=== PATIENT | female | born 1945 | race Caucasian/White ===

== ENCOUNTER 2016-11-30 10:21 | Emergency (ER) | payer MEDICARE, OTHER ==
[2016-11-30] MEDS ORDERED: SODIUM CHLORIDE 0.9% 1000ML 1,000 ML IVS ONE ×2 (10:40→12:27)
[2016-11-30] MEDS ORDERED: PHYTONADIONE INJ 10 MG/ML AMP IM ONE (11:59)
--- NOTE | 2016-11-30 12:12 | ED.PDOC ---
History of Present Illness - General Chief Complaint: GI Problem Time Seen by Provider: 11/30/16 10:39 Source: patient, family Exam Limitations: no limitations - History of Present Illness Initial Comments: Patient presents with BRBPR x one this morning. She had one normal bowel movement this morning then had a second that had streaks of blood mixed with it. She then had a third bm that she says had a large amount of blood but little stool. She is on coumadin for history of multiple PEs. She is scheduled to have a colonoscopy next week. No light-headedness nor confusion. She has had a previous episode but says that the source of the bleeding could not be found. No other complaints. Timing/Duration: 1-3 hours Severity: moderate Improving Factors: nothing Worsening Factors: nothing Associated Symptoms: denies symptoms Allergies/Adverse Reactions: Allergies Penicillins Allergy (Mild, Verified 09/05/16 11:54) Other Causes swelling of tongue and throat. Home Medications: Ambulatory Orders Azilsartan Medoxomil [Edarbi] 20 mg PO DAILY 11/19/14 Acetaminophen [Tylenol] 650 mg PO BEDTIME PRN 09/05/16 Ferrous Gluconate [Fergon] 27 mg PO DAILY 09/05/16 Olopatadine HCl [Pataday] 1 drop BOTH_EYES BID 09/05/16 Rosuvastatin Calcium 5 mg PO BEDTIME 09/05/16 Alum & Mag Hydrox-Simethicone [Mylanta] 30 ml PO PRN #1 daron 09/06/16 Esomeprazole Magnesium [Nexium] 40 mg PO DAILY #60 cap 09/06/16 Sucralfate Tab [Carafate Tab] 1 gm PO ACHS #60 tab 09/06/16 Warfarin Sodium [Coumadin] 1 mg PO MOTUWETHFRSA@1200 #0 09/06/16 Warfarin Sodium [Coumadin] 1.5 mg PO CASTAÑEDA@1200 #0 09/06/16 Review of Systems - Review of Systems Constitutional: States: no symptoms reported EENTM: States: no symptoms reported Respiratory: States: no symptoms reported Cardiology: States: no symptoms reported Gastrointestinal/Abdominal: States: see HPI Genitourinary: States: no symptoms reported Musculoskeletal: States: no symptoms reported Skin: States: no symptoms reported Neurological: States: no symptoms reported Endocrine: States: no symptoms reported Hematologic/Lymphatic: States: no symptoms reported Past Medical History (General) - Patient Medical History Hx Seizures: No Hx Stroke: No Hx Dementia: No Hx Asthma: No Hx of COPD: No Hx Cardiac Disorders: Yes - DVT 1994 Hx Congestive Heart Failure: No Hx Pacemaker: No Hx Hypertension: No Hx Thyroid Disease: No Hx Diabetes: No Hx Gastroesophageal Reflux: Yes - Hiatal hernia Hx Renal Disease: No Hx Cancer: No Hx of HIV: No Hx Hepatitis C: No Hx MRSA: No - Vaccination History Hx Tetanus, Diphtheria Vaccination: Yes Hx Influenza Vaccination: Yes Hx Pneumococcal Vaccination: No - Social History Hx Tobacco Use: No - Quit in 1986 Hx Chewing Tobacco Use: No Hx Alcohol Use: No Hx Substance Use: No Hx Substance Use Treatment: No Hx Depression: No Hx Physical Abuse: No Hx Emotional Abuse: No Hx Suspected Abuse: No Family Medical History - Family History Father Family History: Unknown Living Status: Physical Exam - Physical Exam General Appearance: Alert Ears, Nose, Throat: normal ENT inspection Neck: non-tender, full range of motion, supple Respiratory: lungs clear Cardiovascular/Chest: regular rate, rhythm Gastrointestinal/Abdominal: normal bowel sounds, non tender, soft Back Exam: normal inspection, no CVA tenderness Extremity: normal inspection Skin Exam: normal color Progress - Progress Progress: 11/30/16 12:13 NS one liter IV bolus x one. Vitamin K 10 mg IM x one. Patient was asymptomatic and vital signs stable and wnl. Transferred to [facility] for GI workup. Laboratory Tests 11/30/16 11:15 WBC 4.9 RBC 3.67 L Hgb 11.8 L Hct 35.1 L MCV 95.7 MCH 32.1 H MCHC 33.6 RDW 15.4 H Plt Count 156 MPV 7.6 Absolute Neuts (auto) 2.80 Absolute Lymphs (auto) 1.40 Absolute Monos (auto) 0.60 Absolute Eos (auto) 0.10 Absolute Basos (auto) 0.00 Neutrophils % 57.9 Lymphocytes % 28.1 Monocytes % 11.5 H Eosinophils % 1.5 Basophils % 1.0 PT 36.7 H* INR 3.290 PTT (SP) 41.4 H Sodium 133 L Potassium 4.1 Chloride 100 L Carbon Dioxide 26 Anion Gap 11.1 L BUN 16 Creatinine 0.69 BUN/Creatinine Ratio 23.2 H Random Glucose 90 Serum Osmolality 267.1 L Calcium 8.8 Total Bilirubin 0.5 AST 25 ALT 23 Alkaline Phosphatase 43 Serum Total Protein 7.0 Albumin 3.7 Globulin 3.3 Albumin/Globulin Ratio 1.1 Departure - Departure Clinical Impression: Lower GI bleed Disposition: Transfer to Hospital Condition: Good Departure Forms: ED Discharge - Pt. Copy, Patient Portal Self Enrollment Diet: other - NPO Home Medications: Ambulatory Orders Azilsartan Medoxomil [Edarbi] 20 mg PO DAILY 11/19/14 Acetaminophen [Tylenol] 650 mg PO BEDTIME PRN 09/05/16 Ferrous Gluconate [Fergon] 27 mg PO DAILY 09/05/16 Olopatadine HCl [Pataday] 1 drop BOTH_EYES BID 09/05/16 Rosuvastatin Calcium 5 mg PO BEDTIME 09/05/16 Alum & Mag Hydrox-Simethicone [Mylanta] 30 ml PO PRN #1 daron 09/06/16 Esomeprazole Magnesium [Nexium] 40 mg PO DAILY #60 cap 09/06/16 Sucralfate Tab [Carafate Tab] 1 gm PO ACHS #60 tab 09/06/16 Warfarin Sodium [Coumadin] 1 mg PO MOTUWETHFRSA@1200 #0 09/06/16 Warfarin Sodium [Coumadin] 1.5 mg PO CASTAÑEDA@1200 #0 09/06/16
--- NOTE | 2016-11-30 13:45 | CT ---
EXAM DESCRIPTION: CT ABDOMEN PELVIS WITH IV CONTRAST CLINICAL HISTORY: abdominal pain with rectal bleeding COMPARISON: None. TECHNIQUE: Post-contrast CT images of the abdomen and pelvis are obtained. CT scan done according to ALARA (As Low As Reasonably Achievable). FINDINGS: Visualized lung bases are unremarkable. The liver, spleen comma pancreas, and adrenal glands are unremarkable. Cholecystectomy changes without biliary tract obstruction are seen. Mild atherosclerotic disease. Kidneys show no abnormal calcifications. No ureteral obstruction. Urinary bladder is distended and unremarkable. Surgical clip superior to the posterior urinary bladder is noted. The appendix is not identified. No secondary signs of acute appendicitis. No small bowel obstruction or inflammatory changes are seen. Stomach is not well distended. The colon shows occasional diverticuli mainly in the sigmoid region without associated inflammatory changes. No obvious bowel wall thickening is identified. There is surgical absence of the uterus. The ovaries are not identified. No pathologic lymphadenopathy is seen. Osseous structures show no aggressive bony lesions. Moderate degenerative changes of the lumbar spine at the L5-S1 level are seen. IMPRESSION: No acute findings on CT of the abdomen and pelvis. Mild colon diverticulosis without CT evidence of diverticulitis. Cholecystectomy changes and hysterectomy changes are noted. Electronically signed by: Alberto Ojeda MD 11/30/2016 13:42
[2016-11-30 16:42] VITALS: BP 139/78; TEMP 97.8; O2SAT 97
== END 2016-11-30 16:10 | disposition short-term general hospital (02) ==
LOC: ER 10:21
DX: K92.2 Gastrointestinal hemorrhage, unspecified (principal); K21.9 Gastro-esophageal reflux disease without esophagitis; K44.9 Diaphragmatic hernia without obstruction or gangrene; Z87.891 Personal history of nicotine dependence; Z86.711 Personal history of pulmonary embolism; Z88.0 Allergy status to penicillin; Z79.899 Other long term (current) drug therapy; Z79.01 Long term (current) use of anticoagulants
CPT/HCPCS: 36415; 74177; 80053; 85025; 85610; 85730; J3430; J7030

== ENCOUNTER 2016-12-08 16:54 | Emergency (ER) | payer MEDICARE, OTHER ==
[2016-12-08] MEDS ORDERED: ASPIRIN TABLET 325 MG TAB PO ONE (17:22)
[2016-12-08] MEDS ORDERED: ACETAMINOPHEN 325 MG TAB PO ONE (17:22)
[2016-12-08] MEDS ORDERED: ALPRAZolam 0.25 MG TAB PO ONE (17:22)
[2016-12-08] MEDS ORDERED: ALUMINUM & MAGNESIUM HYDROXIDE 30 ML UD PO ONE (17:22)
--- NOTE | 2016-12-08 17:44 | RAD ---
EXAM DESCRIPTION: Chest,2 Views CLINICAL HISTORY: chest pain COMPARISON: September 05, 2016 FINDINGS: The cardiomediastinal silhouette is unremarkable. Mural calcifications are noted in the thoracic aorta. There is no airspace consolidation or pleural effusion. The bronchovascular markings are within normal limits, and the lungs are not hyperinflated. There is no pneumothorax or acute fracture. IMPRESSION: Vascular calcifications, otherwise unremarkable exam. 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
--- NOTE | 2016-12-08 21:51 | ED.PDOC ---
History of Present Illness - General Chief Complaint: General Stated Complaint: chest pain Time Seen by Provider: 12/08/16 17:21 Source: patient Exam Limitations: no limitations - History of Present Illness Initial Comments: the patient is a 71-year-old female presenting to the emergency room secondary to chest pain that started essentially when the patient was at rest. She was however very upset emotionally over her family situation. The patient is normally very active and has no chest pain with any of her activities. She has not sustained any injuries. The chest pain was very brief on the order of a few minutes. It was a shooting-type chest pain. No palpitations. No syncope or near syncope. The patient has had stress tests in the past that have been good. The patient is currently going off of Coumadin and seeing a microbiology quality control technician tomorrow. She has not had any chest pain by time she arrives here. There is some mild radiation to the left shoulder but not to the jaw. Timing/Duration: momentarily Severity: moderate Improving Factors: nothing Worsening Factors: nothing Associated Symptoms: chest pain, shortness of breath Allergies/Adverse Reactions: Allergies Penicillins Allergy (Mild, Verified 09/05/16 11:54) Other Causes swelling of tongue and throat. Home Medications: Ambulatory Orders Azilsartan Medoxomil [Edarbi] 20 mg PO DAILY 11/19/14 Acetaminophen [Tylenol] 325 mg PO BEDTIME PRN 09/05/16 Ferrous Gluconate [Fergon] 27 mg PO DAILY 09/05/16 Esomeprazole Magnesium [Nexium] 40 mg PO DAILY PRN 11/30/16 Warfarin Sodium [Coumadin] 1 mg PO ACHS 11/30/16 Warfarin Sodium [Coumadin] 1.5 mg PO MOWEFR@1200 11/30/16 Review of Systems - Review of Systems Constitutional: States: malaise EENTM: States: no symptoms reported Respiratory: States: short of breath - transient Cardiology: States: chest pain Gastrointestinal/Abdominal: States: no symptoms reported Genitourinary: States: no symptoms reported Musculoskeletal: States: no symptoms reported Skin: States: no symptoms reported Neurological: States: anxiety Endocrine: States: no symptoms reported All other Systems: No Change from Baseline Past Medical History (General) - Patient Medical History Hx Seizures: No Hx Stroke: No Hx Dementia: No Hx Asthma: No Hx of COPD: No Hx Cardiac Disorders: Yes - DVT 1995 Hx Congestive Heart Failure: No Hx Pacemaker: No Hx Hypertension: No Hx Thyroid Disease: No Hx Diabetes: No Hx Gastroesophageal Reflux: Yes - Hiatal hernia Hx Renal Disease: No Hx Cancer: No Hx of HIV: No Hx Hepatitis C: No Hx MRSA: No - Vaccination History Hx Tetanus, Diphtheria Vaccination: Yes Hx Influenza Vaccination: Yes Hx Pneumococcal Vaccination: Yes - Social History Hx Tobacco Use: Yes Hx Chewing Tobacco Use: No Hx Alcohol Use: No Hx Substance Use: No Hx Substance Use Treatment: No Hx Depression: No Hx Physical Abuse: No Hx Emotional Abuse: No Hx Suspected Abuse: No - Female History Patient is a Female of Child Bearing Age (10 -59 yrs old): No Patient : No Family Medical History - Family History Father Family History: Unknown Living Status: Physical Exam - Physical Exam General Appearance: Alert, Anxious, No apparent distress Eye Exam: bilateral normal Ears, Nose, Throat: hearing grossly normal, normal ENT inspection, normal pharynx Neck: non-tender, full range of motion, supple Respiratory: chest non-tender, lungs clear, normal breath sounds, no respiratory distress, no accessory muscle use Cardiovascular/Chest: normal peripheral pulses, regular rate, rhythm, no edema Peripheral Pulses: radial,right: 2+, radial,left: 2+, dorsalis pedis,right: 2+, dorsalis pedis,left: 2+, posterior tibialis,right: 2+, posterior tibialis,left: 2+ Gastrointestinal/Abdominal: non tender, soft Rectal Exam: deferred Back Exam: normal inspection Extremity: normal range of motion, non-tender, normal inspection, no pedal edema , no calf tenderness, normal capillary refill 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 The chest pain essentially resolved by the time that she arrived here. There has been no recurrence of chest pain. Telemetry monitoring has shown normal sinus rhythm. EKG, lab work and chest x-ray are all reassuring. I do recommend that the patient have a exercise tolerance test in the near future for risk stratification. Keep follow-up appointment with hematology tomorrow and follow- up with her primary care doctor early next week. Return to the emergency room for any acute worsening. - Results/Orders Results/Orders: Laboratory Last Values WBC 4.2 K/mm3 (4.8-10.8) L 12/08/16 17:30 RBC 3.54 M/mm3 (4.20-5.40) L 12/08/16 17:30 Hgb 11.5 gm/dL (12.0-16.0) L 12/08/16:30 Hct 33.4 % (36.0-47.0) L 12/08/16 17:30 MCV 94.5 fl (81.0-99.0) 12/08/16 17:30 MCH 32.4 pg (27.0-31.0) H 12/08/16 17:30 MCHC 34.3 g/dL (33.0-37.0) 12/08/16 17:30 RDW 15.4 % (11.5-14.5) H 12/08/16 17:30 Plt Count 178 K/mm3 (130-400) 12/08/16 17:30 MPV 7.2 fl (7.40-10.4) L 12/08/16 17:30 Absolute Neuts (auto) 2.20 K/uL (1.8-6.8) 12/08/16 17:30 Absolute Lymphs (auto) 1.40 K/uL (1.0-3.4) 12/08/16 17:30 Absolute Monos (auto) 0.50 K/uL (0.2-0.8) 12/08/16 17:30 Absolute Eos (auto) 0.00 K/uL (0.0-0.4) 12/08/16 17:30 Absolute Basos (auto) 0.00 K/uL (0.0-0.1) 12/08/16 17:30 Neutrophils % 52.9 % (42.0-78.0) 12/08/16 17:30 Lymphocytes % 33.3 % (20.0-50.0) 12/08/16 17:30 Monocytes % 12.5 % (2.0-9.0) H 12/08/16 17:30 Eosinophils % 0.7 % (1.0-5.0) L 12/08/16 17:30 Basophils % 0.6 % (0.0-2.0) 12/08/16 17:30 PT 11.5 SECONDS (9.4-12.5) 12/08/16 17:30 INR 1.020 12/08/16 17:30 PTT (SP) 25.1 SECONDS (25.1-36.5) 12/08/16 17:30 Sodium 132 mmol/L (135-145) L 12/08/16 17:30 Potassium 4.1 mmol/L (3.6-5.0) 12/08/16 17:30 Chloride 100 mmol/L (101-111) L 12/08/16 17:30 Carbon Dioxide 24 mmol/L (21-31) 12/08/16 17:30 Anion Gap 12.1 (12-18) 12/08/16 17:30 BUN 11 mg/dL (7-18) 12/08/16 17:30 Creatinine 0.69 mg/dL (0.6-1.3) 12/08/16 17:30 BUN/Creatinine Ratio 15.9 (10-20) 12/08/16 17:30 Random Glucose 108 mg/dL (70-105) H 12/08/16 17:30 Serum Osmolality 264.4 mOsm/L (275-295) L 12/08/16 17:30 Calcium 9.2 mg/dL (8.4-10.2) 12/08/16 17:30 Total Bilirubin 0.4 mg/dL (0.2-1.0) 12/08/16 17:30 AST 20 IU/L (10-42) 12/08/16 17:30 ALT 18 IU/L (10-60) 12/08/16 17:30 Alkaline Phosphatase 45 IU/L (42-121) 12/08/16 17:30 Creatine Kinase 37 IU/L (26-140) 12/08/16 21:05 CK-MB (CK-2) 1.0 ng/mL (0.0-4.4) 12/08/16 21:05 CK-MB (CK-2) % Not Reportable 12/08/16 21:05 Troponin I < 0.02 ng/mL (0.01-0.05) 12/08/16 21:05 B-Natriuretic Peptide 56.0 pg/ml (0-100) 12/08/16 17:30 Serum Total Protein 7.0 gm/dL (6.4-8.2) 12/08/16 17:30 Albumin 3.7 g/dl (3.2-5.5) 12/08/16 17:30 Globulin 3.3 gm/dL (2.3-3.5) 12/08/16 17:30 Albumin/Globulin Ratio 1.1 (1.1-1.9) 12/08/16 17:30 Laboratory Tests 12/08/16 12/08/16 17:30 21:05 WBC 4.2 L RBC 3.54 L Hgb 11.5 L Hct 33.4 L MCV 94.5 MCH 32.4 H MCHC 34.3 RDW 15.4 H Plt Count 178 MPV 7.2 L Absolute Neuts (auto) 2.20 Absolute Lymphs (auto) 1.40 Absolute Monos (auto) 0.50 Absolute Eos (auto) 0.00 Absolute Basos (auto) 0.00 Neutrophils % 52.9 Lymphocytes % 33.3 Monocytes % 12.5 H Eosinophils % 0.7 L Basophils % 0.6 PT 11.5 INR 1.020 PTT (SP) 25.1 Sodium 132 L Potassium 4.1 Chloride 100 L Carbon Dioxide 24 Anion Gap 12.1 BUN 11 Creatinine 0.69 BUN/Creatinine Ratio 15.9 Random Glucose 108 H Serum Osmolality 264.4 L Calcium 9.2 Total Bilirubin 0.4 AST 20 ALT 18 Alkaline Phosphatase 45 Creatine Kinase 44 37 CK-MB (CK-2) 1.1 1.0 CK-MB (CK-2) % Not Reportable Not Reportable Troponin I < 0.02 < 0.02 B-Natriuretic Peptide 56.0 Serum Total Protein 7.0 Albumin 3.7 Globulin 3.3 Albumin/Globulin Ratio 1.1 chest x-ray appears benign for any acute pathology. EKG shows normal sinus rhythm with small Q waves in inferior leads. No acute ST segment changes concerning for ischemia. Normal sinus rhythm. Departure - Departure Clinical Impression: Anxiety, Chest pain, non-cardiac Disposition: Discharge to Home or Self Care Condition: Fair Departure Forms: ED Discharge - Pt. Copy, Patient Portal Self Enrollment Instructions: DI for Atypical Chest Pain, DI for Anxiety -- Adult Diet: regular diet Activity: increase activity as tolerated Referrals: Kalin Jones MD [Primary Care Provider] - 1-5 Days Home Medications: Ambulatory Orders Azilsartan Medoxomil [Edarbi] 20 mg PO DAILY 11/19/14 Acetaminophen [Tylenol] 325 mg PO BEDTIME PRN 09/05/16 Ferrous Gluconate [Fergon] 27 mg PO DAILY 09/05/16 Esomeprazole Magnesium [Nexium] 40 mg PO DAILY PRN 11/30/16 Warfarin Sodium [Coumadin] 1 mg PO ACHS 11/30/16 Warfarin Sodium [Coumadin] 1.5 mg PO MOWEFR@1200 11/30/16 Additional Instructions: the patient is 71-year-old female presenting to the emergency room secondary to chest pain that occurred while she was very upset. The chest pain essentially resolved by the time that she arrived here. There has been no recurrence of chest pain. Telemetry monitoring has shown normal sinus rhythm. EKG, lab work and chest x-ray are all reassuring. I do recommend that the patient have a exercise tolerance test in the near future for risk stratification. Keep follow-up appointment with hematology tomorrow and follow- up with her primary care doctor early next week. Return to the emergency room for any acute worsening.
[2016-12-08 22:09] VITALS: BP 127/73; TEMP 98.2; O2SAT 98
== END 2016-12-08 22:10 | disposition home or self-care (01) ==
LOC: ER 16:54
DX: R07.89 Other chest pain (principal); F41.9 Anxiety disorder, unspecified; K21.0 Gastro-esophageal reflux disease with esophagitis; K44.9 Diaphragmatic hernia without obstruction or gangrene; Z88.0 Allergy status to penicillin; Z79.899 Other long term (current) drug therapy; Z79.01 Long term (current) use of anticoagulants; Z86.718 Personal history of other venous thrombosis and embolism; Z87.891 Personal history of nicotine dependence

== ENCOUNTER → 2017-02-09 | Outpatient (CLI) | payer MEDICARE, OTHER | END | disposition home or self-care (01) | LOC: GMAH 10:21 | PROVIDERS: ATTEND Family Medicine | DX: E78.2 Mixed hyperlipidemia (principal) ==

== ENCOUNTER 2017-04-05 18:14 | Emergency (ER) | payer MEDICARE, OTHER ==
[2017-04-05] MEDS ORDERED: NITROGLYCERIN 0.4 MG 25 EA TAB SL ONE (18:21)
--- NOTE | 2017-04-05 18:48 | ED.PDOC ---
History of Present Illness - General Chief Complaint: Chest Pain/RI Stated Complaint: Chest pain Time Seen by Provider: 04/05/17 18:18 Source: patient, RN notes reviewed, Vital Signs reviewed Exam Limitations: no limitations - History of Present Illness Initial Comments: Patient comes in with c/o substernal chest pain that was going straight through to her back. The pain was sharp and severe. The chest pain started about 16:30. She took and Tylenol #3 and fell asleep. When she woke up a little after 17:00 she was having the severe chest and back pain with some SOB. No nausea or diaphoresis. She did have a nuclear stress test on 03/31/17 and is still awaiting the results. Since then she has had intermittent L shoulder and chest pain but did not think it was concerning. Timing/Duration: 1-3 hours Severity/Quality: severe, sharp, stabbing Location: substernal, back Chest Pain Radiation: back Activities at Onset: rest - she was watching the news Prior Chest Pain/Cardiac Workup: stress test, thallium scan Improving Factors: nothing Worsening Factors: nothing Nitro Today/Relief: 0.4 mg x 1, provided by ED, mild relief Aspirin Treatment Today: no aspirin today - On Eliquis Associated Symptoms: back pain, shortness of breath Allergies/Adverse Reactions: Allergies Penicillins Allergy (Mild, Verified 09/05/16 11:54) Other Causes swelling of tongue and throat. Home Medications: Ambulatory Orders Azilsartan Medoxomil [Edarbi] 20 mg PO DAILY 11/19/14 Acetaminophen [Tylenol] 325 mg PO BEDTIME PRN 09/05/16 Ferrous Gluconate [Fergon] 27 mg PO DAILY 09/05/16 Esomeprazole Magnesium [Nexium] 40 mg PO DAILY PRN 11/30/16 Apixaban [Eliquis] 2.5 mg PO BID 04/05/17 Cetirizine HCl [Zyrtec Allergy] 5 mg PO DAILY 04/05/17 Crestor PO DAILY 04/05/17 Review of Systems - Review of Systems Constitutional: States: no symptoms reported EENTM: States: no symptoms reported Respiratory: States: short of breath. Denies: cough Cardiology: States: see HPI, chest pain. Denies: palpitations, syncope Gastrointestinal/Abdominal: States: no symptoms reported. Denies: nausea Musculoskeletal: States: back pain Skin: States: no symptoms reported Neurological: States: no symptoms reported All other Systems: No Change from Baseline Past Medical History (General) - Patient Medical History Hx Seizures: No Hx Stroke: No Hx Dementia: No Hx Asthma: No Hx of COPD: No Hx Cardiac Disorders: Yes - DVT 1994 Hx Congestive Heart Failure: No Hx Pacemaker: No Hx Hypertension: No Hx Thyroid Disease: No Hx Diabetes: No Hx Gastroesophageal Reflux: Yes - Hiatal hernia Hx Renal Disease: No Hx Cancer: No Hx of HIV: No Hx Hepatitis C: No Hx MRSA: No Surgical History: cholecystectomy, Hysterectomy - Vaccination History Hx Tetanus, Diphtheria Vaccination: Yes Hx Influenza Vaccination: Yes Hx Pneumococcal Vaccination: Yes - Social History Hx Tobacco Use: Yes Hx Chewing Tobacco Use: No Hx Alcohol Use: No Hx Substance Use: No Hx Substance Use Treatment: No Hx Depression: No Hx Physical Abuse: No Hx Emotional Abuse: No Hx Suspected Abuse: No - Female History Patient : No Family Medical History - Family History Father Family History: Unknown Living Status: Physical Exam - Physical Exam General Appearance: Alert, Comfortable, No apparent distress, Well Developed, Well Groomed, Well Hydrated, Well Nourished Neck: non-tender, supple, normal inspection Respiratory: lungs clear, normal breath sounds, no respiratory distress, no accessory muscle use Cardiovascular/Chest: normal peripheral pulses, regular rate, rhythm, no edema, no gallop, no JVD, no murmur Peripheral Pulses: radial,right: 2+, radial,left: 2+, dorsalis pedis,right: 2+, dorsalis pedis,left: 2+ Gastrointestinal/Abdominal: normal bowel sounds, non tender, soft, no organomegaly, no pulsatile mass Extremity: normal range of motion, normal inspection, no pedal edema Neurologic: alert, normal mood/affect, oriented x 3 Skin Exam: normal color, warm/dry Comments: Vital Signs 04/05/17 18:21 Temperature 96.5 F L Pulse Rate [ 80 Apical] Respiratory 20 Rate Blood Pressure 142/93 [Right Arm] O2 Sat by Pulse 95 Oximetry Progress - Progress Progress: 04/05/17 19:22 Initial labs, EKG and CXR are normal. Will repeat Cardiac Enzymes 2 hours after prior. If normal will d/c with followup with her Licensed Real Estate Broker. 04/05/17 21:41 Second set of Cardiac enzymes are normal and her pain has resolved. Will d/c home and have her follow up with her belt lacer. - Results/Orders Results/Orders: Laboratory Tests 04/05/17 04/05/17 04/05/17 18:30 18:30 18:30 WBC 4.6 L RBC 3.62 L Hgb 12.3 Hct 35.3 L MCV 97.7 MCH 33.9 H MCHC 34.7 RDW 14.8 H Plt Count 189 MPV 8.0 Absolute Neuts (auto) 2.10 Absolute Lymphs (auto) 1.90 Absolute Monos (auto) 0.50 Absolute Eos (auto) 0.10 Absolute Basos (auto) 0.00 Neutrophils % 45.9 Lymphocytes % 42.0 Monocytes % 10.3 H Eosinophils % 1.4 Basophils % 0.4 D-Dimer, Quantitative < 230 Sodium 132 L Potassium 4.2 Chloride 98 L Carbon Dioxide 26 Anion Gap 12.2 BUN 12 Creatinine 0.76 BUN/Creatinine Ratio 15.8 Random Glucose 110 H Serum Osmolality 264.9 L Calcium 9.1 Total Bilirubin 0.2 AST 21 ALT 16 Alkaline Phosphatase 51 Creatine Kinase 28 CK-MB (CK-2) 0.9 CK-MB (CK-2) % Not Reportable Troponin I 0.02 Serum Total Protein 7.5 Albumin 3.8 Globulin 3.7 H Albumin/Globulin Ratio 1.0 L 04/05/17 21:00 WBC RBC Hgb Hct MCV MCH MCHC RDW Plt Count MPV Absolute Neuts (auto) Absolute Lymphs (auto) Absolute Monos (auto) Absolute Eos (auto) Absolute Basos (auto) Neutrophils % Lymphocytes % Monocytes % Eosinophils % Basophils % D-Dimer, Quantitative Sodium Potassium Chloride Carbon Dioxide Anion Gap BUN Creatinine BUN/Creatinine Ratio Random Glucose Serum Osmolality Calcium Total Bilirubin AST ALT Alkaline Phosphatase Creatine Kinase 26 CK-MB (CK-2) 0.8 CK-MB (CK-2) % Not Reportable Troponin I 0.02 Serum Total Protein Albumin Globulin Albumin/Globulin Ratio - EKG/XRAY/CT EKG: Sinus, no ST T wave changes, Unchanged from - 12/08/16 XRAY: chest - Normal per Radiologist Departure - Departure Clinical Impression: Atypical chest pain Time of Disposition: 21:42 Disposition: Discharge to Home or Self Care Condition: Good Departure Forms: ED Discharge - Pt. Copy, Patient Portal Self Enrollment Instructions: DI for Atypical Chest Pain Diet: resume usual diet Activity: increase activity as tolerated Referrals: Kalin Jones MD [Primary Care Provider] - 1-2 Weeks Home Medications: Ambulatory Orders Azilsartan Medoxomil [Edarbi] 20 mg PO DAILY 11/19/14 Acetaminophen [Tylenol] 325 mg PO BEDTIME PRN 09/05/16 Ferrous Gluconate [Fergon] 27 mg PO DAILY 09/05/16 Esomeprazole Magnesium [Nexium] 40 mg PO DAILY PRN 11/30/16 Apixaban [Eliquis] 2.5 mg PO BID 04/05/17 Cetirizine HCl [Zyrtec Allergy] 5 mg PO DAILY 04/05/17 Crestor PO DAILY 04/05/17 Additional Instructions: Call Licensed Real Estate Broker in am to arrange follow up
--- NOTE | 2017-04-05 18:58 | RAD ---
EXAM: Single view chest. INDICATION: Chest pain. COMPARISON: Chest x-ray: 12/08/2016. FINDINGS: Cardiac silhouette: Unremarkable. Meghan: Unremarkable. Lobar consolidation: None. Pleural effusion: None. Pneumothorax: None. Other: None. Bones: Unremarkable. Other: None. IMPRESSION: 1. No acute cardiopulmonary process. Electronically signed by: Jasmeet Sher MD 04/05/2017 6:56 PM CDT Workstation: [id number]
[2017-04-05 21:51] VITALS: BP 125/72; TEMP 98.1; O2SAT 95
== END 2017-04-05 21:55 | disposition home or self-care (01) ==
LOC: ER 18:14
DX: R07.89 Other chest pain (principal); K21.9 Gastro-esophageal reflux disease without esophagitis; Z87.891 Personal history of nicotine dependence; Z86.718 Personal history of other venous thrombosis and embolism; Z88.0 Allergy status to penicillin

== ENCOUNTER → 2017-07-14 | Outpatient (CLI) | payer MEDICARE, OTHER ==
--- NOTE | 2017-07-16 18:44 | US ---
Procedure: US CAROTID DOPPLER BILATERAL Exam Date: 07/14/2017 2:07 PM CDT Ordering Provider: TAL CESPEDES Clinical Indication: APHASIA Comparison: None TECHNIQUE : Real-time cerebrovascular ultrasonography was obtained from sternal notch to the angle of the mandible bilaterally utilizing zhang scale, color flow and spectral Doppler analysis. Systolic velocity ratios were calculated for internal carotid artery to common carotid artery bilaterally. FINDINGS: RIGHT CAROTID BIFURCATION: No significant atherosclerotic plaque. Peak systolic and end-diastolic velocities in the right internal carotid artery are 45 and 14 cm/s. Internal carotid/common carotid ratio is 0.9. Right vertebral flow is antegrade. LEFT CAROTID BIFURCATION: No significant atherosclerotic plaque. Peak systolic and end-diastolic velocities in the left internal carotid artery are 42 and 14 cm/s. Internal carotid/common carotid ratio is 0.6. Left vertebral flow is antegrade. IMPRESSION: 1. No significant atherosclerotic plaque in each carotid bulb and ICA origin. 2. There is no significant stenosis (less than 50%) at both ICA origins. 3. Bilateral antegrade vertebral artery flow. Electronically signed by: Yo Magana MD 07/16/2017 6:43 PM CDT
== END | disposition home or self-care (01) ==
LOC: US 14:00
PROVIDERS: ATTEND Family Medicine
DX: R47.01 Aphasia (principal)

== ENCOUNTER → 2017-07-20 | Outpatient (CLI) | payer MEDICARE, OTHER ==
--- NOTE | 2017-07-21 00:44 | CT ---
EXAM DATE: 07/20/2017 10:42 AM CDT. PROCEDURE: CT HEAD WITHOUT IV CONTRAST. INDICATION: TRANSIENT CEREBRAL ISCHEMIC ATTACK. COMPARISON: None. TECHNIQUE: Axial CT images of the head were acquired without intravenous contrast. This exam was performed according to our departmental dose-optimization program which includes use of Automated Exposure Control, adjustment of the mA and/or kV according to patient size and/or use of iterative reconstruction technique. FINDINGS: No acute intracranial hemorrhage. Bhakta white matter differentiation is preserved. No mass effect or midline shift. There is linear hypoattenuation within the left frontal lobe extending from the cortex to the left frontal horn which may represent an old ventriculostomy tract. There is a focal calvarial defect of the left frontal bone with the appearance of an old andrzej hole. No hydrocephalus. Unremarkable orbits. The paranasal sinuses are well aerated. Mastoid air cells are clear. Intact calvarium. IMPRESSION: No acute intracranial abnormality. Presumed old postprocedural changes of the left frontal lobe and left frontal calvarium. Electronically signed by: Kit Schafer MD 07/21/2017 12:43 AM CDT
== END | disposition home or self-care (01) ==
LOC: CT 10:36
PROVIDERS: ATTEND Family Medicine
DX: G45.9 Transient cerebral ischemic attack, unspecified (principal)

== ENCOUNTER → 2018-03-29 | Outpatient (CLI) | payer MEDICARE, OTHER | LOC: GMAH 10:57 | PROVIDERS: ATTEND Family Medicine | DX: E78.2 Mixed hyperlipidemia (principal) ==

== ENCOUNTER → 2018-12-15 | Outpatient (CLI) | payer MEDICARE, OTHER ==
--- NOTE | 2018-12-15 15:11 | MRI ---
EXAM DESCRIPTION: Cervical Spine: MRI. CLINICAL HISTORY: 73 years Female RADICULOPATHY OF CERVICAL REGION COMPARISON: MRI scan cervical spine without contrast 05/13/2015. TECHNIQUE: Multiplanar, high-field MRI, multiple sequences, non-contrast Cervical spine. FINDINGS: C3-C4: Desiccation of the disc. Tiny posterior bulge but disc space maintained. Minimal arthrosis bilateral facets with minimal bilateral neural foraminal narrowing and minimal canal narrowing. C4-C5: Minimal disc desiccation and tiny posterior bulge. Disc space maintained. Right facet joint arthrosis and hypertrophy with the ligament. Mild left neural foraminal narrowing. Right neuroforamen patent. C5-C6: Disc desiccation and tiny posterior bulge. Disc space maintained. Bilateral facet arthrosis and hypertrophy right more than left. Mild right neural foraminal narrowing. C6-C7: Disc desiccation with disc space maintained. Mild left facet arthrosis. Bilateral posterior ligament hypertrophy. Mild canal narrowing. Bilateral neural foramina are patent. Normal signal in the meaning discs with no bulging. Disc spaces preserved. Canal and neural foramina are patent. Facet joints are unremarkable Spinal alignment anatomic.. No cord compression or cord edema. Atlantoaxial joint negative.. Base of the cerebellar tonsils is above the foramen magnum. Paravertebral soft tissues unremarkable. Vertebral bodies are not compressed at any level. Otherwise normal marrow signal in the remaining vertebral bodies and the posterior elements. IMPRESSION: 1. Multiple desiccated discs, but disc spaces preserved, no significant bulging. No canal stenosis. Hypertrophy of the posterior ligaments at some levels. Multiple levels of facet arthrosis and hypertrophy but no significant neuroforaminal narrowing. Normal signal in the cord with no cord compression. Electronically signed by: Tomás Dupont MD 12/15/2018 3:07 PM [facility]
== END ==
LOC: MRI 09:00
PROVIDERS: ATTEND Family Medicine
DX: M50.11 Cervical disc disorder with radiculopathy, high cervical region (principal); M50.120 Mid-cervical disc disorder, unspecified level

== ENCOUNTER → 2019-05-01 | Outpatient (CLI) | payer MEDICARE, OTHER | LOC: GMAH 14:19 | PROVIDERS: ATTEND Family Medicine | DX: E78.2 Mixed hyperlipidemia (principal) ==

== ENCOUNTER 2019-06-30 09:17 | Inpatient (IN) | payer MEDICARE, OTHER ==
[2019-06-30] MEDS ORDERED: SODIUM CHLORIDE 0.9% 1000ML 1,000 ML IVS ONE (09:31)
[2019-06-30] MEDS ORDERED: ACETAMINOPHEN 500 MG TAB PO ONE (09:31)
--- NOTE | 2019-06-30 09:38 | ED.PDOC ---
History of Present Illness - General Chief Complaint: Chest Pain/DC Stated Complaint: L chest wall discomfort, dizziness Time Seen by Provider: 06/30/19 09:21 - History of Present Illness Initial Comments: 74 yo F PMH Blood Clots and HL presents to ED at bedside c/o chest pain cough with dizziness x 2 days, worsened today. Pt. placed on Mucinex by PMD Dr. Padilla has Crew Scheduler Dr. Knight. Denies fever but reports episode where she may have had subjective fever and chills at night 2 days ago. Pt. also reports 2 episodes of diarrhea non bloody. Admits chills denies nausea vomiting admits chest pain denies sob no diaphoresis but reports aforementioned sweating episode at night 2 days ago. No change in diet rest bowel or bladder. Denies drinking or smoking admits FH DM denies FH HTN. Pt. is on Eloquis. No other c/o today. Allergies/Adverse Reactions: Allergies Penicillins Allergy (Mild, Verified 09/05/16 11:54) Other Causes swelling of tongue and throat. Home Medications: Ambulatory Orders Azilsartan Medoxomil [Edarbi] 20 mg PO DAILY 11/19/14 Apixaban [Eliquis] 2.5 mg PO BID 04/05/17 Losartan Potassium 25 mg PO DAILY 06/30/19 Rosuvastatin Calcium 5 mg PO DAILY 06/30/19 Review of Systems - Review of Systems Constitutional: States: chills EENTM: States: no symptoms reported Respiratory: States: cough Cardiology: States: chest pain Gastrointestinal/Abdominal: States: diarrhea Genitourinary: States: no symptoms reported Musculoskeletal: States: no symptoms reported Skin: States: no symptoms reported Neurological: States: other - Dizziness Endocrine: States: no symptoms reported Hematologic/Lymphatic: States: blood clots All other Systems: Reviewed and Negative Past Medical History (General) - Patient Medical History Hx Seizures: No Hx Stroke: No Hx Dementia: No Hx Asthma: No Hx of COPD: No Hx Cardiac Disorders: Yes - Dyslipidemia, Hx blood clots Hx Congestive Heart Failure: No Hx Pacemaker: No Hx Hypertension: Yes Hx Thyroid Disease: No Hx Diabetes: No Hx Gastroesophageal Reflux: Yes - Hiatal hernia Hx Renal Disease: No Hx Cancer: No Hx of HIV: No Hx Hepatitis C: No Hx MRSA: No - Vaccination History Hx Tetanus, Diphtheria Vaccination: Yes Hx Influenza Vaccination: Yes - 2017 Hx Pneumococcal Vaccination: Yes - Social History Hx Tobacco Use: No Hx Chewing Tobacco Use: No Hx Alcohol Use: No Hx Substance Use: No Hx Substance Use Treatment: No Hx Depression: No Hx Physical Abuse: No Hx Emotional Abuse: No Hx Suspected Abuse: No - Female History Patient : No Family Medical History - Family History Father Family History: Unknown Living Status: Physical Exam - Physical Exam General Appearance: No apparent distress Eyes, Ears, Nose, Throat Exam: normal ENT inspection Neck: non-tender, full range of motion Respiratory: normal breath sounds, no respiratory distress Cardiovascular/Chest: regular rate, rhythm Gastrointestinal/Abdominal: non tender, soft Extremity: normal range of motion, non-tender Neurologic: no motor/sensory deficits Skin Exam: normal color Progress - Progress Progress: 06/30/19 09:40 A/P-Chest Pain, Cough, Diarrhea 1.iv bolus tylenol cbc cmp trop ekg cxr pt ptt urinalysis reassess EKG-non specific TW changes No STEMI 06/30/19 11:10 06/30/19 09:30 IV:Start .ONCE 06/30/19 09:45 Pulse Ox, Continuous Monitoring STAT 06/30/19 10:15 EKG STAT 07/01/19 09:45 Pulse Ox, Continuous Monitoring STAT 07/02/19 09:45 Pulse Ox, Continuous Monitoring STAT 07/03/19 09:45 Pulse Ox, Continuous Monitoring STAT Laboratory Results - last 24 hr 06/30/19 06/30/19 06/30/19 09:30 09:30 09:30 WBC 4.0 L RBC 3.74 L Hgb 12.7 Hct 37.4 MCV 99.9 H MCH 33.9 H MCHC 33.9 RDW 14.5 Plt Count 173 MPV 7.6 Absolute Neuts (auto) 2.10 Absolute Lymphs (auto) 1.20 Absolute Monos (auto) 0.60 Absolute Eos (auto) 0.10 Absolute Basos (auto) 0.00 Neutrophils % 51.6 Lymphocytes % 29.7 Monocytes % 15.4 H Eosinophils % 2.6 Basophils % 0.7 PT INR PTT (SP) Sodium 135 Potassium 4.3 Chloride 102 Carbon Dioxide 24 Anion Gap 13.3 BUN 10 Creatinine 0.68 BUN/Creatinine Ratio 14.7 Random Glucose 107 H Serum Osmolality 269.6 L Calcium 9.0 Total Bilirubin 0.3 AST 25 ALT 18 Alkaline Phosphatase 49 Troponin I < 0.02 Serum Total Protein 7.2 Albumin 3.7 Globulin 3.5 Albumin/Globulin Ratio 1.1 Urine Color Urine Appearance Urine pH Ur Specific Lawrence Urine Protein Urine Glucose (UA) Urine Ketones Urine Blood Urine Nitrite Urine Bilirubin Urine Urobilinogen Ur Leukocyte Esterase Urine RBC Urine WBC Ur Epithelial Cells Urine Bacteria 06/30/19 06/30/19 09:30 09:55 WBC RBC Hgb Hct MCV MCH MCHC RDW Plt Count MPV Absolute Neuts (auto) Absolute Lymphs (auto) Absolute Monos (auto) Absolute Eos (auto) Absolute Basos (auto) Neutrophils % Lymphocytes % Monocytes % Eosinophils % Basophils % PT 10.0 INR 1.00 PTT (SP) 23.7 Sodium Potassium Chloride Carbon Dioxide Anion Gap BUN Creatinine BUN/Creatinine Ratio Random Glucose Serum Osmolality Calcium Total Bilirubin AST ALT Alkaline Phosphatase Troponin I Serum Total Protein Albumin Globulin Albumin/Globulin Ratio Urine Color Yellow Urine Appearance Clear Urine pH 6.0 Ur Specific Lawrence <= 1.005 Urine Protein Negative Urine Glucose (UA) Negative Urine Ketones Negative Urine Blood Negative Urine Nitrite Negative Urine Bilirubin Negative Urine Urobilinogen 0.2 Ur Leukocyte Esterase Negative Urine RBC 0 Urine WBC 0 Ur Epithelial Cells 5-10 Urine Bacteria Rare 06/30/19 11:21 EXAM DESCRIPTION: Chest,1 View CLINICAL HISTORY: 74 years Female pain COMPARISON: Portable chest dated 04/05/2017 TECHNIQUE: Portable AP view of the chest is obtained. FINDINGS IN THE CHEST: Heart: Allowing for magnification factors related to AP portable technique and body habitus, the heart is normal in size and configuration. Vasculature: [There is mild tortuosity and atherosclerosis of the aorta. ] There is no evidence of aortic aneurysm or acute findings. The pulmonary vascularity is normal. Mediastinum: No evidence of mass or adenopathy. Lungs: There is mild diffuse interstitial prominence. There is no focal consolidation in the lungs. Pleura: There are no pleural effusions. There are no pneumothoraces. Osseous structures: No evidence of acute fracture or other significant osseous abnormalities. Tubes and catheters: None Chest wall: Unremarkable. Visualized Abdomen: Unremarkable. IMPRESSION: Nonspecific interstitial prominence may be acute or chronic as from interstitial edema or an acute lower respiratory tract viral illness versus fibrosis. There is no evidence of acute consolidative pneumonia. Remainder of findings as described above. Electronically signed by: Alley Moseley MD 06/30/2019 10:24 AM CDT PROCEDURE: CT Head Without Intravenous Contrast CLINICAL INDICATION: The patient is 74 years years old, Female; Dizziness TECHNIQUE: Axial computed tomography images of the head/brain without intravenous contrast. Sagittal and coronal reformatted images were created and reviewed. This CT exam was performed using one or more of the following dose reduction techniques: automated exposure control, adjustment of the mA and/or kV according to patient size, and/or use of iterative reconstruction technique. COMPARISON: CT head dated 07/20/2017 FINDINGS: BRAIN: No intracerebral or extracerebral mass lesions are identified. There is mild patchy hypodensity of the cerebral white matter is unchanged and is nonspecific but likely secondary to chronic microvascular ischemic changes in end vessel distributions. Bhakta/white matter distinction is maintained. There is no evidence of intracranial hemorrhage. There is no evidence of acute territorial infarct. (It should be noted that acute infarct may not be discernible in the first [address] ) MIDLINE SHIFT: There is no shift of the midline structures. VENTRICLES: There is prominence of the ventricles, sulci, cerebellar folia, and basilar cisterns consistent with volume loss. BONES/JOINTS: There is no acute calvarial abnormality or other discernible acute osseous abnormalities. Ajgruti hole again noted in the left frontal bone SOFT TISSUES: Unremarkable. VASCULATURE: There is mild atherosclerotic calcification right carotid siphon and basilar artery. SINUSES: The visualized paranasal sinuses are clear with the exception of the development in the interim of mild to moderate mucoperiosteal thickening in the visualized right maxillary sinus. MASTOID AIR CELLS: The mastoids and middle ears are clear. IMPRESSION: 1. No acute intracranial abnormality. (It should be noted that acute infarct may not be discernible in the first [address]) a follow-up head ct or mri is recommended if neurologic symptoms persist. 2. Volume loss. 3. Nonspecific mild white matter lucency compatible with deep white matter ischemic changes versus demyelination versus gliosis. 4. ASVD. 5. Remainder of findings as discussed above. Electronically signed by: Alley Moseley MD 06/30/2019 10:29 AM CDT Spoke to hospitalist Mikayla Owusu who will take the patient after repeat troponin, will give small dose morphine with zofran for pain and ADMIT 06/30/19 11:34 Departure - Departure Clinical Impression: Dizziness, Cough Chest pain Qualifiers: Chest pain type: unspecified Qualified Code(s): R07.9 - Chest pain, unspecified Time of Disposition: 11:36 Disposition: Discharge to Home or Self Care Condition: Fair Departure Forms: ED Discharge - Pt. Copy, Patient Portal Self Enrollment Instructions: DI for Chest Pain Referrals: Bhupinder Padilla MD [Primary Care Provider] - 1-2 Weeks Home Medications: Ambulatory Orders Azilsartan Medoxomil [Edarbi] 20 mg PO DAILY 11/19/14 Apixaban [Eliquis] 2.5 mg PO BID 04/05/17 Losartan Potassium 25 mg PO DAILY 06/30/19 Rosuvastatin Calcium 5 mg PO DAILY 06/30/19 Decision To Admit - Decistion To Admit Decision to Admit Reason: Admit from ER Decision to Admit Date: 06/30/19 Decision to Admit Time: 11:35
--- NOTE | 2019-06-30 10:25 | RAD ---
EXAM DESCRIPTION: Chest,1 View CLINICAL HISTORY: 74 years Female pain COMPARISON: Portable chest dated 04/05/2017 TECHNIQUE: Portable AP view of the chest is obtained. FINDINGS IN THE CHEST: Heart: Allowing for magnification factors related to AP portable technique and body habitus, the heart is normal in size and configuration. Vasculature: [There is mild tortuosity and atherosclerosis of the aorta. ] There is no evidence of aortic aneurysm or acute findings. The pulmonary vascularity is normal. Mediastinum: No evidence of mass or adenopathy. Lungs: There is mild diffuse interstitial prominence. There is no focal consolidation in the lungs. Pleura: There are no pleural effusions. There are no pneumothoraces. Osseous structures: No evidence of acute fracture or other significant osseous abnormalities. Tubes and catheters: None Chest wall: Unremarkable. Visualized Abdomen: Unremarkable. IMPRESSION: Nonspecific interstitial prominence may be acute or chronic as from interstitial edema or an acute lower respiratory tract viral illness versus fibrosis. There is no evidence of acute consolidative pneumonia. Remainder of findings as described above. Electronically signed by: Alley Moseley MD 06/30/2019 10:24 AM CDT
--- NOTE | 2019-06-30 10:30 | CT ---
PROCEDURE: CT Head Without Intravenous Contrast CLINICAL INDICATION: The patient is 74 years years old, Female; Dizziness TECHNIQUE: Axial computed tomography images of the head/brain without intravenous contrast. Sagittal and coronal reformatted images were created and reviewed. This CT exam was performed using one or more of the following dose reduction techniques: automated exposure control, adjustment of the mA and/or kV according to patient size, and/or use of iterative reconstruction technique. COMPARISON: CT head dated 07/20/2017 FINDINGS: BRAIN: No intracerebral or extracerebral mass lesions are identified. There is mild patchy hypodensity of the cerebral white matter is unchanged and is nonspecific but likely secondary to chronic microvascular ischemic changes in end vessel distributions. Bhakta/white matter distinction is maintained. There is no evidence of intracranial hemorrhage. There is no evidence of acute territorial infarct. (It should be noted that acute infarct may not be discernible in the first [address] ) MIDLINE SHIFT: There is no shift of the midline structures. VENTRICLES: There is prominence of the ventricles, sulci, cerebellar folia, and basilar cisterns consistent with volume loss. BONES/JOINTS: There is no acute calvarial abnormality or other discernible acute osseous abnormalities. Jagruti hole again noted in the left frontal bone SOFT TISSUES: Unremarkable. VASCULATURE: There is mild atherosclerotic calcification right carotid siphon and basilar artery. SINUSES: The visualized paranasal sinuses are clear with the exception of the development in the interim of mild to moderate mucoperiosteal thickening in the visualized right maxillary sinus. MASTOID AIR CELLS: The mastoids and middle ears are clear. IMPRESSION: 1. No acute intracranial abnormality. (It should be noted that acute infarct may not be discernible in the first [address]) a follow-up head ct or mri is recommended if neurologic symptoms persist. 2. Volume loss. 3. Nonspecific mild white matter lucency compatible with deep white matter ischemic changes versus demyelination versus gliosis. 4. ASVD. 5. Remainder of findings as discussed above. Electronically signed by: Alley Moseley MD 06/30/2019 10:29 AM CDT
[2019-06-30] MEDS ORDERED: MORPHINE SULFATE INJ 10 MG/ML VIAL IV ONE (11:27)
[2019-06-30] MEDS ORDERED: ONDANSETRON INJ 4 MG/2 ML VIAL IV ONE (11:27)
[2019-06-30] MEDS ORDERED: DOXYCYCLINE TAB (ER DISPENSE) 100 MG CAP PO ONE (11:28)
[2019-06-30] MEDS ORDERED: DOXYCYCLINE HYCLATE CAP 100 MG CAP PO ONE (11:49)
--- NOTE | 2019-06-30 12:43 | HP ---
SUPERVISING PHYSICIAN: Cristian Sellers M.D. CHIEF COMPLAINT: Chest pain. HISTORY OF PRESENT ILLNESS: This is a 74 year-old female patient who has a past medical history of blood clots and hyperlipidemia. She came to the Emergency Room with her complaining of chest pain and coughing as well as some dizziness that started approximately 2 days ago. She had had some upper respiratory issues several days ago and had been put on Mucinex. Her wanted her to go to see her primary care physician again, but she would not as she said she had other issues to deal with, mainly needing a bladder suspension. Her chest pain was sudden onset. It was midsternal. It did radiate somewhat to the right side. She did not have any diaphoresis. No nausea or vomiting. She was at rest when it started and exertion did not make it worse. There were no alleviating factors. She said she felt that it was not her heart but it was her lungs. She has had upper respiratory type symptoms over the last 2 to 3 days. Her initial vital signs were temperature 97.6, heart rate 76, blood pressure 154/86, respiratory rate 18, O2 sat 95%. Lab studies were done. CMP was basically within normal limits. Initial troponin was negative. Her troponin approximately 2 hours later was negative. I was called for hospital admission for chest pain rule out acute coronary syndrome. PAST MEDICAL HISTORY: 1. Gastroesophageal reflux disease. 2. Urinary incontinence. 3. Depression and anxiety. 4. History of asthma. 5. Bladder prolapse. 6. Iron-deficiency anemia. 7. Hyperlipidemia. 8. Chronic cervical disc disease. 9. Hiatal hernia. 10. History of deep venous thrombosis and pulmonary embolism currently on Eliquis. 11. Sjogren's syndrome. 12. Rheumatoid arthritis. PAST SURGICAL HISTORY: 1. Cholecystectomy. 2. Bilateral mastectomy due to a family history of breast cancer. 3. Left rotator cuff surgery. 4. Total hysterectomy. CURRENT MEDICATIONS: Per the EMR and awaiting verification. ALLERGIES: PENICILLIN. FAMILY HISTORY: Positive for myocardial infarction, cardiovascular disease and congestive heart failure. SOCIAL HISTORY: She is retired. She is . She lives in [place]. She quit smoking in 1986. Denies any ETOH or illicit drug use. PHYSICAL EXAMINATION: VITAL SIGNS: Temperature 97, heart rate 62, blood pressure 146/76, respiratory rate 18, O2 sat 95% on room air. GENERAL: This is a 74 year-old female patient who is lying in her hospital bed. She is in no acute distress. HEENT: Normocephalic and atraumatic. Pupils are equal and reactive. Oropharynx is clear. NECK: Supple without mass. RESPIRATORY: Essentially clear to auscultation bilaterally. CHEST: There is equal rise and fall of the chest with inspiration and expiration. CARDIOVASCULAR: Regular rate and rhythm. GASTROINTESTINAL: Abdomen is soft, nondistended, non-tender. Bowel sounds are positive. EXTREMITIES: No clubbing, cyanosis or edema. NEUROLOGIC: She is awake, alert and oriented times three. Cranial nerves II- XII are grossly intact. SKIN: Warm and dry. LABORATORY: Labs are as per the History of Present Illness. RADIOLOGY: Chest x-ray shows nonspecific interstitial prominence may be acute or chronic as from interstitial edema or acute lower respiratory tract viral illness versus fibrosis. There is no evidence of acute consolidative pneumonia. Head CT shows: 1. No acute intracranial abnormality. 2. Volume loss. 3. Nonspecific white matter lucency compared with deep white matter ischemic changes versus demyelination versus gliosis. 4. ASVD. All other labs and films have been reviewed via the EMR. ASSESSMENT: 1. Chest pain, rule out acute coronary syndrome. 2. Questionable dementia as reported by the family, currently it is undiagnosed and she is not being treated. 3. Depression and anxiety. 4. Gastroesophageal reflux disease. 5. History of deep venous thrombosis and pulmonary embolism presently on Eliquis. 6. Cervical disc disorder. 7. History of hiatal hernia. 8. Hyperlipidemia. 9. History of rheumatoid arthritis. PLAN: The patient has been on observation. Chest pain guidelines have been initiated. Her talked to me at length that she becomes very confused and is accusatory of family members. He feels that they are early signs of dementia. She refuses to get testing at this time as she thinks there is nothing wrong and wanted to make sure I knew of her history and that it was becoming increasingly problematic. He also wanted the both of them to go to [facility] but he was unsure how to approach it. I told him that I would speak with Dr. Padilla. Her home medications will be restarted as soon as they are verified. Her Eliquis will suffice as DVT prophylaxis. She is on Protonix for ulcer prophylaxis. I will continue with her serial cardiac enzymes. Will do routine lab for in the morning. Will continue to monitor closely and follow as needed. #[id number]
[2019-06-30] MEDS ORDERED: SODIUM CHLORIDE 0.9% (FLUSH) 10 ML SYG IV PRN (13:53)
[2019-06-30] MEDS ORDERED: MORPHINE SULFATE INJ 10 MG/ML VIAL IV PRN (13:53)
[2019-06-30] MEDS ORDERED: NITROGLYCERIN 0.4 MG 25 EA TAB SL PRN (13:53)
[2019-06-30] MEDS: traMADol HCL 50 MG TAB PO PRN ×2 (17:29→21:04)
[2019-06-30] MEDS: IV SET AND CAP CHANGE INJ INJ SCH (18:29)
[2019-06-30] MEDS: APIXABAN 2.5 MG PO SCH (20:59)
[2019-06-30] MEDS: SODIUM CHLORIDE 0.9% (FLUSH) 10 ML SYG IV SCH (21:00)
[2019-06-30] MEDS: SIMVASTATIN 20 MG TAB PO SCH (21:00)
[2019-07-01] MEDS ORDERED: PANTOPRAZOLE SODIUM TAB 40 MG PO ONE (04:24)
[2019-07-01] MEDS: traMADol HCL 50 MG TAB PO PRN ×3 (05:23→23:26)
[2019-07-01] MEDS: PANTOPRAZOLE SODIUM TAB 40 MG PO SCH (06:05)
[2019-07-01] MEDS: APIXABAN 2.5 MG PO SCH ×2 (08:37→21:14)
[2019-07-01] MEDS: LOSARTAN POTASSIUM 25 MG TAB PO SCH (08:37)
[2019-07-01] MEDS: SODIUM CHLORIDE 0.9% (FLUSH) 10 ML SYG IV SCH ×2 (09:00→21:15)
[2019-07-01] MEDS: ACETAMINOPHEN 325 MG TAB PO PRN ×2 (09:02→20:16)
[2019-07-01] MEDS ORDERED: traMADol HCL 50 MG TAB PO ONE (09:36)
[2019-07-01] MEDS ORDERED: ALPRAZolam 0.25 MG TAB PO PRN (11:40)
[2019-07-01] MEDS ORDERED: ONDANSETRON ODT 8 MG TAB SL PRN (11:50)
[2019-07-01] MEDS: SIMVASTATIN 20 MG TAB PO SCH (21:15)
[2019-07-01] MEDS: guaiFENesin ER TAB 600 MG TAB PO SCH (21:15)
[2019-07-01] MEDS ORDERED: METOPROLOL TARTRATE 25 MG TAB ONE (23:19)
[2019-07-01] MEDS ORDERED: METOPROLOL TARTRATE 25 MG TAB PO ONE (23:19)
[2019-07-02] MEDS ORDERED: METOPROLOL TARTRATE INJ 5 MG/5 ML VIAL IV ONE ×2 (00:25→00:26)
[2019-07-02] MEDS: PANTOPRAZOLE SODIUM TAB 40 MG PO SCH (06:13)
--- NOTE | 2019-07-02 08:13 | PN ---
SUPERVISING PHYSICIAN: Cristian Sellers MD DATE: 07/01/19 SUBJECTIVE: The patient was to be discharged today as her cardiac enzymes were negative. As the patient was being discharged from the hospital, she became diaphoretic and had some chest pressure. Cardiac enzymes were negative, but due to her continuing complaints of chest pressure as well as some concerns for dementia mentioned by her , we decided it would be prudent to leave her in the hospital overnight and to get some testing done in the morning. The patient was diaphoretic, but her pain did not increase with exertion. It was mid to substernal. There was no radiation. She had no nausea or vomiting. She does not feel like it is her heart, but she feels like it could be pleuritic pain and her had some concerns about her dementia although the patient is somewhat belligerent when he discusses it. OBJECTIVE: VITAL SIGNS: Temperature 97.6. Heart rate 79. Blood pressure 129/83. Respiratory rate 16. O2 saturation 95% on room air. RESPIRATORY: Essentially clear to auscultation bilaterally. CARDIAC: Regular rate and rhythm. 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 GASTROINTESTINAL: Abdomen is soft, nondistended, nontender. Bowel sounds are positive. EXTREMITIES: No cyanosis, clubbing or edema. NEUROLOGIC: Awake, alert and oriented times three. LABORATORY: CBC is basically unremarkable. Metabolic panel shows slightly low sodium at 133. Serum osmolality 256.6. She had multiple panels of cardiac enzymes done through her stay and they have all been within normal limits. There are no radiology reports at this time. ASSESSMENT: 1. Chest pain, rule out acute coronary syndrome. 2. Questionable dementia as reported by the family, currently it is undiagnosed and she is not being treated. 3. Depression and anxiety. 4. Gastroesophageal reflux disease. 5. History of deep venous thrombosis and pulmonary embolism presently on Eliquis. 6. Cervical disc disorder. 7. History of hiatal hernia. 8. Hyperlipidemia. 9. History of rheumatoid arthritis. PLAN: We will continue present supportive care. Her labs are stable, so those will not be repeated in the morning. I will do a chest CT in the morning as well as a head MRI. She will also have an echocardiogram done. The patient is very uncooperative in regards to the possibility of dementia. Her is quite concerned, but she has voiced her opinions that she does not believe she has any kind of dementia. She has been very accusatory to her family members and she does vacillate back and forth with confusion as to what she wants done for her health issues. At this point, her is willing to do anything including getting himself tested for any kind of dementia issues just to get her treated. She has agreed to followup with Dr. Padilla in regards to her hospital stay. I think it would be beneficial for her and her to go to [facility] here at the hospital. Hopefully some of the testing that I do in the morning will help with establishing her diagnoses. We will continue to monitor the patient closely and follow as needed. #[id number] [facility]
--- NOTE | 2019-07-02 09:05 | CT ---
EXAM DESCRIPTION: Chest w/wo Contrast : Computed Tomography. CLINICAL HISTORY: 74 years Female chest pain: pleuritic pain COMPARISON: MRI scan of the brain with and without contrast on the same visit. TECHNIQUE: Spiral-axial scans at 5 x 5 mm intervals through the lungs and thorax without and with IV contrast. 2.5 x 5 mm lung algorithm axial reconstructions. Coronal and sagittal 2.0 Mm reconstructions. No adverse reactions. Total Exam DLP: 734.66 mGy-cm. This exam was performed according to our departmental dose-optimization program which includes automated exposure control, adjustment of the mA and/or kV according to patient size and/or use of iterative reconstruction technique; to reduce radiation dose to as low as reasonably achievable (ALARA). Nodule measurements under 10 mm are given as mean value of 3 axes diameters. FINDINGS: Lungs and large airways: Bilateral multiple parenchymal blebs in a centrilobular distribution decreasing in size and number from the upper lung aranda to the lower lung aranda. Bibasilar atelectasis more left than right in the lower lobes. Small air bronchograms. Bibasilar pleural-parenchymal scarring which is also seen in the inferior lingula. No abnormal nodules or masses bilaterally. No infiltrates in the mid or upper lung aranda. Pleural spaces: Bilateral pleural effusion/thickening in the bases more left than right. No pneumothorax. Mediastinum and Meghan: No enlarged lymph nodes or dominant soft tissue masses. Great vessels and Heart: Coronary arterial sclerosis and ectasia of the aortic arch with atherosclerotic calcifications continuing into the descending aorta. Small atherosclerotic calcifications in the included brachiocephalic vessels. Soft tissues of neck base, axillae, and chest wall: Unremarkable. Small nodes in the axilla bilaterally. Upper abdomen: No free air or free fluid in the included peritoneal space. Included abdominal organs showing typical arterial phase contrast heterogeneity. Surgical clips in the gallbladder fossa without fluid. Atherosclerotic calcifications in the abdominal aorta. Osseous structures: Spondylosis in the included spine and bilateral shoulders. No lytic or blastic lesions. IMPRESSION: 1. Bilateral pleural thickening/effusion more left than right with bibasilar atelectasis. Bilateral air bronchograms in the lower lobes associated with atelectasis could indicate pneumonia. No pneumothorax. Background centrilobular emphysematous changes more prevalent in the upper lung aranda. Electronically signed by: Tomás Dupont MD 07/02/2019 9:03 AM CDT
[2019-07-02] MEDS: LOSARTAN POTASSIUM 25 MG TAB PO SCH (09:46)
[2019-07-02] MEDS: SODIUM CHLORIDE 0.9% (FLUSH) 10 ML SYG IV SCH ×2 (09:46→21:18)
[2019-07-02] MEDS: METOPROLOL TARTRATE 25 MG TAB PO SCH ×2 (09:46→16:47)
[2019-07-02] MEDS: guaiFENesin ER TAB 600 MG TAB PO SCH ×2 (09:46→21:18)
[2019-07-02] MEDS: APIXABAN 2.5 MG PO SCH ×2 (09:47→21:17)
--- NOTE | 2019-07-02 10:34 | MRI ---
EXAM DESCRIPTION: Brain w/o Contrast: MRI. CLINICAL HISTORY: ?dementia; dizziness COMPARISON: CT scan of the head without contrast 06/30/2019. TECHNIQUE: Multiplanar, high-field MRI unit, multiple diffusion sequences, multiple conventional sequences without contrast. FINDINGS: Focal hyperintense FLAIR and T2-weighted signal circumferentially around a low signal density that extends from left frontal cortex and a left frontal craniotomy site inferiorly to the left basal ganglia, then extending from the left basal ganglia to the region of the left cingulate gyrus/left hypothalamus/temporal horn of the lateral ventricle. Terminates laterally to the left side of the [place] Bilateral periventricular white matter hyperintensity in the eli radiata. Small foci of hyperintensity in the centrum semiovale bilaterally predominantly frontal and parietal lobes.. . No hemorrhage, no cerebral edema, no mass-effect. No diffusion restriction. No hemorrhage mass effect or diffusion restriction in the bilateral basal ganglia. Normal signal in the brainstem and cerebellar hemispheres. No hemorrhage, no parenchymal edema, no mass-effect. No diffusion restriction. Concordance of the diffusion and non-diffusion sequences with no diffusion restriction. Cortical sulci, ventricles, and other CSF spaces, and the subdural spaces are normally configured except as previously noted.. No effacement or displacement. No midline shift. No extra-axial hemorrhage. Normal flow signal void in the major vessels of the [place], and the venous sinuses. IACs are symmetric bilaterally. Normal signal bilateral mastoid air cells. No mass effect in the bilateral cerebellopontine angles. Pituitary gland occupies most of the sella. Base of the cerebellar tonsils is at the level of the foramen magnum. Minimal mucoperiosteal thickening in the paranasal sinuses, more on the right. No air-fluid levels.. The bony calvarium unremarkable except for craniotomy site is noted.. IMPRESSION: 1. No diffusion restriction on the noncontrast MRI, with no evidence of acute or subacute significant ischemia or infarction. 2. No extra-axial or intra-axial hemorrhage, mass effect, or cerebral edema. 3. Tract extending from the left frontal craniotomy site in the region of the left hypothalamus/left cingulate gyrus/left temporal horn lateral ventricle. No fluid in the tract. Surrounded by gliosis in the cortex and upper white matter. Previous shunt or monitoring device. 4. Minimal chronic paranasal sinusitis. Electronically signed by: Tomás Dupont MD 07/02/2019 10:32 AM CDT
[2019-07-02] MEDS: levoFLOXacin 750MG IV 750 MG in PREMIX BAG 1 BAG IVPB SCH (13:18)
[2019-07-02] MEDS: ACETAMINOPHEN 325 MG TAB PO PRN (18:51)
--- NOTE | 2019-07-02 19:05 | PN ---
DATE: 07/02/19 SUPERVISING PHYSICIAN: Bhupinder Padilla M.D. SUBJECTIVE: The patient feels okay this morning but a little bit dizzy. She did have her MRI already but I do not have the results of that. Last night she actually had an episode of atrial fibrillation with RVR that did respond to Metoprolol IV. Additionally she had a CAT scan this morning which is indicative of a left lower lobe pneumonia. This did not show up on x-ray. She does have a normal white count and no fever as of yet. OBJECTIVE: VITAL SIGNS: Blood pressure 118/75, heart rate 74, respiratory rate 16, temperature 97.6, oxygen saturation 96% on 2 liters. GENERAL: Ms. Fermin is a 74 year-old female who is in no active distress currently. NEUROLOGIC: The patient is alert and oriented. LUNGS: A little bit diminished in the bases but otherwise clear to auscultation bilaterally. CARDIOVASCULAR: Regular rate and rhythm. Normal S1 and S2. ABDOMEN: Soft. Positive bowel sounds. GENITOURINARY: Exam is deferred. EXTREMITIES: Lower extremities with no edema. RADIOLOGY: CT of the chest as stated above shows bilateral atelectasis left greater than right with some air bronchograms indicative of pneumonia. MRI of the brain does not show any acute findings. Echocardiogram is still pending. ASSESSMENT: 1. Chest pain, rule out acute coronary syndrome which has been ruled out by 4 sets of negative cardiac enzymes. 2. Left lower lobe pneumonia which is seen on CT scan of the chest. 3. Atrial fibrillation with rapid ventricular response which responded to IV Metoprolol. 4. Possible dementia. 5. Depression with anxiety. 6. Gastroesophageal reflux disease. 7. History of deep venous thrombosis on Eliquis. 8. Cervical disc disorder. 9. Hiatal hernia. 10. Hyperlipidemia. 11. History of rheumatoid arthritis. PLAN: At this point will place the patient on IV Levaquin for the pneumonia. Our workup for cardiac issues has been negative except for the new onset of atrial fibrillation which was seen last night. She has not had any more episodes after the IV Metoprolol. We will continue the p.o. Metoprolol and continue to monitor. I spoke with Dr. Padilla who is going to come review her case and speak with the patient after clinic today. I will recheck a chest x- ray and labs in the morning as well. [facility][id number] [facility]
[2019-07-02] MEDS: SIMVASTATIN 20 MG TAB PO SCH (21:18)
[2019-07-03] MEDS: PANTOPRAZOLE SODIUM TAB 40 MG PO SCH (05:59)
--- NOTE | 2019-07-03 07:15 | RAD ---
EXAM DESCRIPTION: Chest,1 View CLINICAL HISTORY: LLL pneumonia COMPARISON: June 30, 2019 FINDINGS: The cardiomediastinal silhouette is unremarkable. Mild subsegmental atelectasis or scarring in the left lung base, but no airspace consolidation or pleural effusion. The lung volumes are within normal range. There is no pneumothorax or acute fracture. IMPRESSION: Mild subsegmental atelectasis or scarring in the left lung base, but no radiographic evidence of pneumonia. Electronically signed by: Brian Leslie MD 07/03/2019 7:13 AM CDT
[2019-07-03] MEDS: METOPROLOL TARTRATE 25 MG TAB PO SCH ×2 (07:21→16:33)
[2019-07-03] MEDS: ACETAMINOPHEN 325 MG TAB PO PRN ×2 (07:21→21:53)
[2019-07-03] MEDS: APIXABAN 2.5 MG PO SCH ×2 (08:48→20:33)
[2019-07-03] MEDS: LOSARTAN POTASSIUM 25 MG TAB PO SCH (08:48)
[2019-07-03] MEDS: guaiFENesin ER TAB 600 MG TAB PO SCH ×2 (08:48→20:34)
[2019-07-03] MEDS: SODIUM CHLORIDE 0.9% (FLUSH) 10 ML SYG IV SCH ×2 (08:49→20:34)
--- NOTE | 2019-07-03 09:49 | PN ---
SUPERVISING PHYSICIAN: Bhupinder Padilla M.D. DATE: 07/03/19 SUBJECTIVE: The patient feels a little bit better today. She does not have any complaints of dizziness. She still has inspiratory pleuritic pain, left lateral axilla area. OBJECTIVE: VITAL SIGNS: Blood pressure 118/75. Heart rate 72. Respiratory rate 18. Temperature 97.7. Oxygen saturation 95%. GENERAL: Ms. Fermin is a 74 year-old female who is in no active distress currently. NEUROLOGIC: The patient is alert and oriented. LUNGS: Diminished in the bases, but otherwise clear to auscultation bilaterally. CARDIOVASCULAR: Regular rate and rhythm. Normal S1 and S2. ABDOMEN: Soft. Positive bowel sounds. EXTREMITIES: 2+ pulses. Capillary refills less than 2 seconds. LABORATORY: White count 3.9, hemoglobin 13.5, platelet count 157. Chemistry with sodium 129, potassium 4.2, chloride 95, CO2 26, BUN 14, creatinine 0.74. Glucose 111, calcium 9.3. RADIOLOGY: Chest x-ray which was done shows mild subsegmental atelectasis or scarring in the left lung base. ASSESSMENT: 1. Atypical chest pain, acute coronary syndrome has been ruled out. 2. Left lower lobe pneumonia seen on CT scan of the chest. 3. Atrial fibrillation, resolved. 4. Possible dementia. 5. Depression with anxiety. 6. Gastroesophageal reflux disease. 7. History of deep venous thrombosis on Eliquis. 8. Cervical disc disorder. 9. Hiatal hernia. 10. Hyperlipidemia. 11. History of rheumatoid arthritis. PLAN: We will continue the IV Levaquin. Labs are stable. Chest x-ray really not worsening at all. She is still having the pleuritic type chest pain. I have instructed her to take deep breaths and cough. She will need to get out of bed and ambulate in the hallway today as well. We will recheck labs in the morning. [id number] [facility]
[2019-07-03] MEDS: levoFLOXacin 750MG IV 750 MG in PREMIX BAG 1 BAG IVPB SCH (13:57)
[2019-07-03] MEDS: IV SET AND CAP CHANGE INJ INJ SCH (14:52)
[2019-07-03] MEDS: SIMVASTATIN 20 MG TAB PO SCH (20:34)
[2019-07-04] MEDS: PANTOPRAZOLE SODIUM TAB 40 MG PO SCH (06:02)
--- NOTE | 2019-07-04 07:31 | RAD ---
EXAM DESCRIPTION: Chest,1 View CLINICAL HISTORY: 74 years Female, LLL pneumonia COMPARISON: July 03, 2019 TECHNIQUE: AP portable chest. FINDINGS: Fair expansion of the lungs is evident without consolidation, layering effusion, or large mass. On today's examination the left lung base appears normal. Heart size and vascularity appear normal for AP technique and degree of inspiration. No gross bony, hilar, or mediastinal abnormalities are noted. IMPRESSION: Normal chest, one view Electronically signed by: Cristian Mari MD 07/04/2019 7:30 AM CDT
[2019-07-04] MEDS: ACETAMINOPHEN 325 MG TAB PO PRN (07:36)
[2019-07-04] MEDS: METOPROLOL TARTRATE 25 MG TAB PO SCH (08:11)
[2019-07-04] MEDS: LOSARTAN POTASSIUM 25 MG TAB PO SCH (08:11)
[2019-07-04] MEDS: APIXABAN 2.5 MG PO SCH (08:12)
[2019-07-04] MEDS: guaiFENesin ER TAB 600 MG TAB PO SCH (08:12)
[2019-07-04] MEDS: SODIUM CHLORIDE 0.9% (FLUSH) 10 ML SYG IV SCH (08:12)
--- NOTE | 2019-07-04 09:45 | DS ---
SUPERVISING PHYSICIAN: Bhupinder Padilla MD ADMISSION DIAGNOSIS: 1. Chest pain, rule out acute coronary syndrome. 2. Possible dementia as reported by the family. 3. Depression and anxiety. 4. Gastroesophageal reflux disease. 5. History of deep venous thrombosis and pulmonary embolism presently on Eliquis. 6. Cervical disc disorder. 7. History of hiatal hernia. 8. Hyperlipidemia. 9. History of rheumatoid arthritis. DISCHARGE DIAGNOSIS: 1. Atypical chest pain, acute coronary syndrome ruled out. 2. Left lower lobe pneumonia seen on CT scan of the chest. 3. Atrial fibrillation, resolved. 4. Possible dementia. 5. Depression and anxiety. 6. Gastroesophageal reflux disease. 7. History of deep venous thrombosis and pulmonary embolism on Eliquis. 8. Cervical disc disorder. 9. Hiatal hernia. 10. Hyperlipidemia. 11. Rheumatoid arthritis. HOSPITAL COURSE: This is a 74-year-old female patient who came to the hospital with some chest pain mainly left lateral and low axillary area. She was admitted for chest pain with rule out. Her troponins were negative. EKGs did not show any changes. However, she was kept because she had an episode of diaphoresis and chest pain. That additional set of cardiac enzymes were negative as well. She was kept overnight on Tuesday night and actually had a burst of atrial fibrillation with rapid ventricular response. She responded to IV Lopressor and was started on p.o. Lopressor. During her admission, she had no more episodes of atrial fibrillation. She had a CT scan of the chest the next day along with echocardiogram and MRI of the brain. MRI was unremarkable. Echocardiogram we have not seen the results of. However, CT scan of the chest showed that she had a left lower lobe pneumonia. For that reason, she was started on antibiotics. Over the next couple of days, she actually improved. Her pleuritic chest pain improved. She was started on incentive spirometry to assist with this and she started to actually cough up some sputum. Therefore, today, the day of discharge, she is in stable condition. She is in no distress. She will go home on Levaquin 250 mg for 7 more days. We are also giving her prescription for 25 mg of Lopressor b.i.d. She will followup with Randy next week on July 10 at 9 o'clock in the morning. #[id number] [facility]D
[2019-07-04 09:58] VITALS: BP 130/76; TEMP 97; O2SAT 95
== END 2019-07-04 11:10 | disposition home or self-care (01) | DRG 195 ==
LOC: ER 09:17 → MS 12:42 → OBSVTOIN 07-02 15:39
PROVIDERS: ADMIT Nurse Practitioner Acute Care; ATTEND Nurse Practitioner
DX: J18.1 Lobar pneumonia, unspecified organism (principal); R07.89 Other chest pain; I48.91 Unspecified atrial fibrillation; F03.90 Unspecified dementia, unspecified severity, without behavioral disturbance, psychotic disturbance, mood disturbance, and anxiety; F41.9 Anxiety disorder, unspecified; F32.9 Major depressive disorder, single episode, unspecified; K21.9 Gastro-esophageal reflux disease without esophagitis; M50.30 Other cervical disc degeneration, unspecified cervical region; K44.9 Diaphragmatic hernia without obstruction or gangrene; E78.5 Hyperlipidemia, unspecified; M06.9 Rheumatoid arthritis, unspecified; R32 Unspecified urinary incontinence; J45.909 Unspecified asthma, uncomplicated; D50.9 Iron deficiency anemia, unspecified; M35.00 Sjogren syndrome, unspecified; Z88.0 Allergy status to penicillin; Z87.891 Personal history of nicotine dependence; Z79.02 Long term (current) use of antithrombotics/antiplatelets; Z86.718 Personal history of other venous thrombosis and embolism; Z86.711 Personal history of pulmonary embolism

== ENCOUNTER → 2019-08-29 | Outpatient (CLI) | payer MEDICARE, OTHER | END | disposition home or self-care (01) | LOC: GMA MATASK 15:16 | PROVIDERS: ATTEND Family Medicine | DX: D72.818 Other decreased white blood cell count (principal) ==

== ENCOUNTER 2019-09-10 10:25 | Observation (INO) | payer MEDICARE, OTHER ==
--- NOTE | 2019-09-10 10:31 | HP ---
SUPERVISING PHYSICIAN: Kit Tovar MD CHIEF COMPLAINT: Group A Streptococcus infection, dehydration, hyponatremia failed outpatient treatment measures. HISTORY OF PRESENT ILLNESS: Ms. Fermin is a 74-year-old female patient that was recently seen and treated by Dr. Padilla on 09/03/19 for positive strep pharyngitis. She was started on Keflex, however, had issues filling medications. She worsened acutely over the weekend during the holiday and had a near syncopal episode from weakness and was taken to the Emergency Room at [facility] and evaluated. There, she was found to have continued strep along with concerns for developing possible pneumonia and was started on a Z-Toni. She presented to Dr. Padilla's office this morning for followup and was found to be generally unwell, obviously dehydrated, weak and somewhat hypotensive initially on exam with blood pressure 96/60, mildly tachycardic at 98 beats per minute. There was concern that she failed to respond to patient treatment and starting to produce some green-yellow sputum and reporting subjective fever at home with some lightheadedness. She was tested for flu and found to be negative. Dr. Padilla requested the patient be placed in observation for fluid management, initiation of parenteral antibiotic overnight and further treatment evaluation and close monitoring. She was directly admitted in stable condition. PAST MEDICAL HISTORY: 1. Gastroesophageal reflux disease. 2. Urinary incontinence. 3. Recent Group A Streptococcus pharyngitis. PAST SURGICAL HISTORY: 1. Cholecystectomy. 2. Bilateral mastectomy. 3. Hysterectomy. HOME MEDICATIONS: Awaiting updated list of medications in the electronic medical record. FAMILY HISTORY: Father at age 76 due to myocardial infarction. Mother at age 85 due to chronic congestive heart failure. She has two brothers, one with unspecified type cancer. She has two sisters, one from myocardial infarction. She was one brother from unknown causes. 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 She is . She has two children, one . She has never smoked. She does not use illicit drugs or alcohol. REVIEW OF SYSTEMS: CONSTITUTIONAL: Positive general malaise, weakness, fatigue, body aches. HEENT: Positive for sore throat, nasal congestion. Negative for earaches, headaches. RESPIRATORY: Positive for cough with increasing productive sputum noted to be yellow-green. CARDIOVASCULAR: Negative for chest pain, palpitations or syncopal episodes. She did note she had a near syncopal episode at home. GASTROINTESTINAL: Negative for nausea, vomiting, diarrhea, constipation or abdominal pain. GENITOURINARY: Negative for dysuria, hematuria, polyuria. MUSCULOSKELETAL: Generalized arthralgias, but no joint swelling. NEUROLOGIC: Negative for headaches, earaches, sore throats or focal deficits. SKIN: Denies lesions or unexplained changes. HEMATOLOGIC: Denies easy bruising, unexplained bleeding or any transfusion reactions. PHYSICAL EXAMINATION: VITAL SIGNS: Temperature 97.5. Pulse 89. Blood pressure 103/70. Respiratory rate 16. Oxygen saturation 95%. Admission 77 kg. GENERAL: The patient does appear unwell, but in no obvious acute distress. She is alert. HEENT: Tympanic membranes clear bilaterally. Oropharynx is mildly erythematous with normal tonsils. NECK: Supple, nontender with full range of motion. No jugular venous distention noted. RESPIRATORY: Lung sounds fairly clear throughout, just diminished towards the bases. No obvious rhonchi, wheezes or rales. CARDIOVASCULAR: Regular rate and rhythm without any appreciable murmurs, gallops, or rubs. ABDOMEN: Soft, nontender. Positive bowel sounds. EXTREMITIES: There is no edema. LABORATORY: White count within normal limits at 7,500, hemoglobin 11.6, hematocrit 33.0, platelet count 277,000, differential without a left shift. Chemistry showed sodium 130, potassium 4.5. Other electrolytes within normal limits. Creatinine 0.62. Lactic acid normal at 0.8, calcium 8.9, magnesium 1.8. Liver functions all within normal limits. urinalysis pending. RADIOLOGY: Chest x-ray per radiologic interpretation showed chronic interstitial lung disease with no acute infiltration identified. ASSESSMENT: 1. Group A Streptococcus pharyngitis having failed outpatient treatment measures with concerns for developing possible upper respiratory infection to community acquired pneumonia. 2. Mild hyponatremia with some generalized weakness, possibly secondary to #1. 3. Chronic gastroesophageal reflux disease. 4. Urinary incontinence. PLAN: Ms. Fermin is going to be placed in observation for fluid management and to correct her sodium levels. We will go ahead and give her some parenteral antibiotics for the first 24 hours as she has failed to respond to previous treatment measures. We will give her breathing treatments as needed. I anticipate her length of stay to be at least one to two days, possibly discharging tomorrow. We will plan to repeat labs in the morning. Until the patient can transition to outpatient management, we will continue to monitor and treat as needed. [facility][id number] [facility]
[2019-09-10] MEDS ORDERED: ALBUTEROL SULFATE 2.5 MG/3 ML VIAL NEB PRN (10:38)
[2019-09-10] MEDS ORDERED: ACETAMINOPHEN 325 MG TAB PO PRN (10:38)
[2019-09-10] MEDS ORDERED: SODIUM CHLORIDE 0.9% (FLUSH) 10 ML SYG IV PRN (10:38)
[2019-09-10] MEDS ORDERED: MAGNESIUM HYDROXIDE 30 ML UD PO PRN (10:38)
[2019-09-10] MEDS ORDERED: ONDANSETRON INJ 4 MG/2 ML VIAL IV PRN (10:38)
[2019-09-10] MEDS ORDERED: IV SET AND CAP CHANGE INJ INJ SCH (11:00)
[2019-09-10] MEDS ORDERED: SODIUM CHLORIDE 0.9% 250ML 250 ML ONE (11:26)
[2019-09-10] MEDS ORDERED: AZITHROMYCIN IV 500 MG VIAL IVPB ONE (11:27)
[2019-09-10] MEDS ORDERED: SODIUM CHL 0.9% 50ML MIN-BAG+ 50 ML IVPB ONE (11:27)
[2019-09-10] MEDS ORDERED: cefTRIAXone SODIUM 1 GM VIAL ONE (11:27)
--- NOTE | 2019-09-10 11:39 | RAD ---
EXAM DESCRIPTION: Chest,2 Views CLINICAL HISTORY: 74 years Female, Pneumonia COMPARISON: None Available TECHNIQUE: PA/lateral FINDINGS: Mild chronic interstitial lung disease is observed. The lungs are free of acute infiltrate. The heart is within range of normal. No pleural fluid is seen. Degenerative changes are seen in the thoracic spine. IMPRESSION: Chronic interstitial lung disease is observed. No acute infiltrate is identified. Electronically signed by: Regis Palacio MD 09/10/2019 11:37 AM [facility]
[2019-09-10] MEDS ORDERED: IPRATROPIUM/ALBUTEROL 3 ML VIAL INH SCH (12:00)
[2019-09-10] MEDS: cefTRIAXone SODIUM 1 GM in SODIUM CHL 0.9% 50ML MIN-BAG+ 50 ML IVPB SCH (12:12)
[2019-09-10] MEDS ORDERED: LACTATED RINGERS 1,000 ML IVS ONE (12:37)
[2019-09-10] MEDS: AZITHROMYCIN IV 500 MG in SODIUM CHLORIDE 0.9% 250ML 250 ML IVPB SCH (13:39)
[2019-09-10] MEDS: SODIUM CHLORIDE 0.9% 1000ML 1,000 ML IVS PRN (18:15)
[2019-09-10] MEDS ORDERED: PANTOPRAZOLE SODIUM IV 40 MG VIAL ONE (20:24)
[2019-09-10] MEDS ORDERED: APIXABAN 5 MG TAB PO ONE (21:13)
[2019-09-10] MEDS ORDERED: NON-FORMULARY MEDICATION 1 EA MIS (Apixaban [Eliquis] 2.5 MG) PO SCH (21:15)
[2019-09-10] MEDS: guaiFENesin 100 MG/5 ML 10 ML UD PO PRN (21:42)
[2019-09-11] MEDS: PANTOPRAZOLE SODIUM IV 40 MG VIAL IV SCH (05:34)
[2019-09-11] MEDS: SODIUM CHLORIDE 0.9% 1000ML 1,000 ML IVS PRN ×2 (06:37→21:42)
--- NOTE | 2019-09-11 07:34 | RAD ---
Study: Frontal and Lateral Radiographs of the Chest. Indication: Pneumonia Comparison: September 2019 Impression: Heart size normal. Stable chronic interstitial thickening throughout the lungs. Mild bilateral basilar atelectasis versus consolidation. Follow-up to resolution recommended. No pleural effusion or pneumothorax. Degenerative changes of the spine noted. Osteopenia. If this is a new finding, DEXA scan recommended as well as evaluation for possible osteoporosis treatment. Electronically signed by: Jonathan Gamez MD 09/11/2019 7:33 AM [facility]
[2019-09-11] MEDS: LOSARTAN POTASSIUM 25 MG TAB PO SCH (08:55)
[2019-09-11] MEDS: APIXABAN 5 MG TAB PO SCH ×2 (08:55→19:58)
[2019-09-11] MEDS: BUDESONIDE/FORMOTEROL 160/4.5 60 PUFF/6 GM INH INH SCH ×2 (09:45→22:14)
[2019-09-11] MEDS: IPRATROPIUM/ALBUTEROL 3 ML VIAL NEB SCH ×3 (09:45→16:39)
[2019-09-11] MEDS ORDERED: cefTRIAXone SODIUM 1 GM VIAL ONE (10:26)
[2019-09-11] MEDS ORDERED: SODIUM CHLORIDE 0.9% 250ML 250 ML ONE (10:26)
[2019-09-11] MEDS ORDERED: SODIUM CHL 0.9% 50ML MIN-BAG+ 50 ML IVPB ONE (10:26)
[2019-09-11] MEDS ORDERED: AZITHROMYCIN IV 500 MG VIAL IVPB ONE (10:26)
[2019-09-11] MEDS: AZITHROMYCIN IV 500 MG in SODIUM CHLORIDE 0.9% 250ML 250 ML IVPB SCH (11:26)
[2019-09-11] MEDS: cefTRIAXone SODIUM 1 GM in SODIUM CHL 0.9% 50ML MIN-BAG+ 50 ML IVPB SCH (12:56)
--- NOTE | 2019-09-11 14:10 | PN ---
SUPERVISING PHYSICIAN: Kit Tovar MD DATE: 09/11/19 SUBJECTIVE: The patient states she feels better than she did yesterday. She does not feel quite back to her baseline. She states she had pneumonia about 3 months ago and feels like she never really got over that. However, she is in no distress. OBJECTIVE: VITAL SIGNS: Blood pressure 128/76. Heart rate 76. Respiratory rate 18. Temperature 98.2. Oxygen saturation 97%. GENERAL: Ms. Fermin is a 74-year-old female who is in no active distress currently. NEUROLOGIC: Alert and oriented. LUNGS: Bilateral wheezing. CARDIOVASCULAR: Regular rate and rhythm. Normal S1, S2. ABDOMEN: Soft. Positive bowel sounds. EXTREMITIES: Lower extremities with no edema. LABORATORY: White count 5.3, hemoglobin 10.9, platelet count 266. Chemistry is unremarkable. ASSESSMENT: 1. Group A Streptococcus pharyngitis having failed outpatient therapy. 2. Dehydration. 3. Hyponatremia. 4. Gastroesophageal reflux disease. 5. Urinary incontinence. 6. Atrial fibrillation with rapid ventricular response. PLAN: We will continue the current antibiotic therapy. I have discussed with Dr. Padilla and we will transition to doxycycline tomorrow morning and likely discharge. I would like to monitor her one more day. Additionally, I have placed her on nebulizer therapy scheduled here in the hospital given her wheezing. Her chest x-ray does show some bibasilar atelectasis. We will need to follow this as an outpatient. Her heart rate is high, so I will resume the metoprolol that she is supposed to be taking. #[id number] [facility]
[2019-09-11] MEDS ORDERED: LEVALBUTEROL NEBS 1.25 MG/3 ML VIAL NEB ONE (16:25)
[2019-09-11] MEDS ORDERED: LEVALBUTEROL NEBS 0.63 MG/3 ML VIAL NEB PRN (16:27)
[2019-09-11] MEDS: METOPROLOL TARTRATE 25 MG TAB PO SCH ×2 (16:40→19:59)
[2019-09-11] MEDS ORDERED: ROSUVASTATIN CALCIUM 5 MG PO SCH (21:00)
[2019-09-11] MEDS ORDERED: SIMVASTATIN 20 MG TAB PO SCH (21:00)
[2019-09-11] MEDS: guaiFENesin 100 MG/5 ML 10 ML UD PO PRN (21:42)
[2019-09-12] MEDS: PANTOPRAZOLE SODIUM IV 40 MG VIAL IV SCH (05:39)
[2019-09-12] MEDS: BUDESONIDE/FORMOTEROL 160/4.5 60 PUFF/6 GM INH INH SCH (08:15)
[2019-09-12] MEDS: METOPROLOL TARTRATE 25 MG TAB PO SCH (09:34)
[2019-09-12] MEDS: APIXABAN 5 MG TAB PO SCH (09:34)
[2019-09-12] MEDS: LOSARTAN POTASSIUM 25 MG TAB PO SCH (09:34)
[2019-09-12 10:30] VITALS: BP 160/76; TEMP 97.8; O2SAT 98
--- NOTE | 2019-09-12 20:58 | DS ---
SUPERVISING PHYSICIAN: Kit Tovar M.D. ADMISSION DIAGNOSIS: 1. Group A Streptococcus pharyngitis with failed outpatient measures. 2. Mild hyponatremia. 3. Gastroesophageal reflux disease. 4. Urinary incontinence. DISCHARGE DIAGNOSIS: 1. Group A Streptococcus pharyngitis with failed outpatient therapy. 2. Dehydration. 3. Hyponatremia. 4. Gastroesophageal reflux disease. 5. Urinary incontinence. 6. Atrial fibrillation with rapid ventricular response. HOSPITAL COURSE: The patient is a 74 year-old female who came to the hospital as a direct admission from Dr. Padilla's office. She was seen on September 03 for positive Strep pharyngitis. She was started on Keflex, however apparently did not fill her prescriptions. Over the weekend she also had a near syncopal episode from weakness and was taken to the [facility] in [place] and evaluated. There she was found to still have the Strep and concern for possible developing pneumonia, therefore was started on a Z-Toni. She presented to Dr. Padilla's office on Tuesday morning for followup and from there she was referred for direct admission. In the hospital, she was placed on azithromycin and Rocephin. White count was normal. She was not really having any shortness of breath initially. She was seen by myself on September 11 and was having some wheezing. She states that she does have a history of asthma. She does not take any chronic medications. She was started on some DuoNeb which caused some pretty significant tachycardia. She had the same episode back in June and therefore I changed her to Xopenex, but additionally restarted the Toprol that she apparently had stopped on her own. Her division controller was called to ensure that she is supposed to be on that medication and, in fact, she is supposed to be taking that medication. This corrected her heart rate and so today on the day of discharge the patient is in stable condition and ready to go home. Heart rate is stable. She is not having any complaints. She will be discharged on doxycycline as discussed with Dr. Padilla. Will followup with him within a week. Activity is as tolerated. #[id number] [facility]
== END 2019-09-12 09:45 | disposition home or self-care (01) ==
LOC: INTOOBSV 10:25 → MS 10:25
PROVIDERS: ADMIT Nurse Practitioner Family; ATTEND Nurse Practitioner
DX: J02.0 Streptococcal pharyngitis (principal); E86.0 Dehydration; E87.1 Hypo-osmolality and hyponatremia; K21.9 Gastro-esophageal reflux disease without esophagitis; R32 Unspecified urinary incontinence; I48.20 Chronic atrial fibrillation, unspecified; R53.1 Weakness; Z79.01 Long term (current) use of anticoagulants; Z79.899 Other long term (current) drug therapy; Z88.0 Allergy status to penicillin; Z88.8 Allergy status to other drugs, medicaments and biological substances; Z87.01 Personal history of pneumonia (recurrent); Z87.891 Personal history of nicotine dependence; Z90.49 Acquired absence of other specified parts of digestive tract; Z90.710 Acquired absence of both cervix and uterus; Z90.13 Acquired absence of bilateral breasts and nipples; Z82.49 Family history of ischemic heart disease and other diseases of the circulatory system; Z80.9 Family history of malignant neoplasm, unspecified
CPT/HCPCS: J0696 ×2; J7030 ×3; J7050 ×4; J7614; J0456 ×2; J7620 ×2; J7120; 80048; 80053; 36415; 81001; 85025 ×2; 87040 ×2; 83735; 83605; 71046 ×2; 94640 ×3; 94760 ×3; 94664; G0378

== ENCOUNTER → 2019-11-28 | Outpatient (CLI) | payer MEDICARE, OTHER | LOC: GMA MATASK 14:26 | PROVIDERS: ATTEND Family Medicine | DX: R07.9 Chest pain, unspecified (principal) ==

== ENCOUNTER → 2020-05-19 | Outpatient (CLI) | payer MEDICARE, OTHER | LOC: GMA MATASK 10:43 | PROVIDERS: ATTEND Family Medicine | DX: I10 Essential (primary) hypertension (principal) ==